=== PATIENT | male | born 1960 | race Caucasian/White ===

== ENCOUNTER 2018-10-12 12:09 | Emergency (ER) | payer OTHER, SELFPAY ==
[~2018-10-12 12:09] MED LIST: Sodium Chloride 0.9% 100 ML BAG ONE
[2018-10-12] MEDS ORDERED: Sodium Chloride 0.9% 1,000 ML ONE (13:17)
[2018-10-12] MEDS ORDERED: Piperacillin/Tazobactam 3.375 GM VIAL ONE (13:17)
[2018-10-12 13:27] LABS: #Basophils 0.1 thou/uL (0.0-0.2); #Eosinphils 0.1 thou/uL (0.0-0.7); #Lymphocytes 1.5 thou/uL (1.20-3.40); #Monocytes 0.8 thou/uL (0.11-0.59); #Neutrophils 9.8 thou/uL (1.40-6.50); %Basophils 0.8 % (0.0-1.0); %Eosinophils 0.4 % (0.0-10.0); %Lymphocytes 12.1 % (21.0-51.0); %Monocytes 6.6 % (0.0-10.0); %Neutrophils 80.1 % (42.0-75.0); Hemoglobin 13.8 g/dL (14.0-18.0); Mean Corpuscular HGB CONC 33.5 g/dL (32.0-36.0); Mean Corpuscular Hemoglobin 29.2 pg (27.0-31.0); Mean Corpuscular Volume 87.2 fL (78.0-98.0); Mean Platelet Volume 8.1 fL (7.4-10.4); Platelet Count 201 thou/uL (130-400); RBC Distribution Width 12.3 % (11.5-14.5); Red Blood Cell (RBC) Count 4.71 mill/uL (4.70-6.10); White Blood Cell (WBC) Count 12.2 thou/uL (4.8-10.8)
--- NOTE | 2018-10-12 13:33 | RAD ---
XR Hand Rt 3 View STANDARD History: Cellulitis Comparison: None. Findings: There is soft tissue swelling of the fourth finger, the ring finger. Possible punctate radi opaque object projects over the medial soft tissues proximal phalanx small finger although cannot be confirmed on the lateral radiograph and could be artifact from the film. There is narrowing of the second and third metacarpal phalangeal joints with osteophyte formation. 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 No acute osseous abnormality. Impression: Severe soft tissue swelling of the ring finger surrounding the proximal interphalangeal j oint without erosions or periostitis concerning for infection. If there is concern for deep infection or septic arthritis MRI would be beneficial if clinically warranted.
[2018-10-12 13:45] LABS: ALT (SGPT) 15 U/L (8-55); AST (SGOT) 17 U/L (5-34); Albumin 4.2 g/dL (3.5-5.0); Alkaline Phosphatase 77 U/L (40-150); Anion Gap 15 mmol/L (10-20); BUN (Urea Nitrogen) 15 mg/dL (8.4-25.7); Bilirubin, Total 3.2 mg/dL (0.2-1.2); Calc. Creatinine Clearance 0 mL/min (70-130); Calcium 9.4 mg/dL (7.8-10.44); Carbon Dioxide 26 mmol/L (22-29); Chloride 101 mmol/L (98-107); Estimated GFR-MDRD 66; Globulin 4.2 g/dL (2.4-3.5); Glucose 101 mg/dL (70-105); Potassium 3.8 mmol/L (3.5-5.1); Protein, Total 8.4 g/dL (6.0-8.3); Sodium 138 mmol/L (136-145)
[2018-10-12] MEDS ORDERED: Morphine 4 MG/ML VIAL ONE ×3 (14:06→17:24)
== END 2018-10-12 15:58 | disposition short-term general hospital (02) ==
LOC: MADERS 12:09
DX: M65.9 Synovitis and tenosynovitis, unspecified (principal)
CPT/HCPCS: 36415; 80053; 83605; 85025; 87040; 96365; 96366; 96367; 96375; J2270; J2543; J3370; J3490; J7050

== ENCOUNTER 2023-09-09 10:44 | Outpatient (CLI) | payer MEDICARE | END 2023-09-09 10:45 | disposition home or self-care (01) | LOC: MADLAB 10:44 | PROVIDERS: ATTEND Nurse Practitioner Family | DX: S69.91XA Unspecified injury of right wrist, hand and finger(s), initial encounter (principal); M19.041 Primary osteoarthritis, right hand ==